=== PATIENT | male | born 1980 | race Caucasian/White ===

== ENCOUNTER 2022-02-28 15:20 | Emergency (ER) | payer MEDICAID ==
[~2022-02-28] VITALS: Ht 157.5 cm; Wt 69.0 kg
[2022-02-28 15:27] VITALS: BP 161/114
== END 2022-02-28 18:01 | disposition left against medical advice (07) ==
LOC: ER 15:20
DX: R10.9 Unspecified abdominal pain (principal); Z86.59 Personal history of other mental and behavioral disorders
CPT/HCPCS: 99283